=== PATIENT | male | born 1945 | race African-American/Black ===

== ENCOUNTER 2017-12-09 16:39 | Inpatient (IN) | payer MEDICARE, MEDICAID ==
[~2017-12-09] VITALS: Ht 172.7 cm; Wt 63.2 kg
[2017-12-09] MEDS ORDERED: SODIUM CHLORIDE 0.9% 1,000 ML IV ONE (17:03)
[2017-12-09 17:46] LABS: BASOPHILS % 0.7 % (0.0-2.0); HEMATOCRIT. 51.2 % (42.0-52.0); HEMOGLOBIN. 17.3 g/dL (14.0-18.0); LYMPHOCYTES % 60.2 % (20.0-50.0); MEAN CORPUSCULAR HEMOGLOBIN 31.6 pg (28.0-32.0); MEAN CORPUSCULAR VOLUME 93.8 fL (80.0-94.0); MEAN PLATELET VOLUME 8.8 fl (7.4-10.4); MONOCYTES % 9.1 % (2.0-8.0); PLATELET 171 x1000/uL (130-400); RED BLOOD CELL COUNT 5.46 mill/uL (4.7-6.1); RED CELL DISTRIBUTION WIDTH 14.6 % (11.6-14.6)
[2017-12-09 17:51] LABS: CHLORIDE 101 mEq/L (98-107)
[2017-12-09 17:54] LABS: PARTIAL THROMBOPLASTIN TIME 27.5 sec (23.4-31.0); PROTHROMBIN TIME 10.9 sec (9.4-11.6)
[2017-12-09 18:03] LABS: CREATINE KINASE MB FRACTION 4.9 ng/mL (0.5-3.6)
[2017-12-09] MEDS ORDERED: NALOXONE HCL 1 MG/ML 2ML VIAL IV NR (18:45)
[2017-12-09] MEDS ORDERED: HYDRALAZINE 20MG/ML VIAL IV NR (19:15)
[2017-12-09] MEDS ORDERED: MEROPENEM 1,000 MG in SODIUM CHLORIDE 0.9% 100 ML IV NR (19:15)
[2017-12-09 19:25] LABS: ETHANOL BLOOD < 10 mg/dL
[2017-12-09 19:47] LABS: PROTEIN URINE TRACE (NEGATIVE); SPECIFIC GRAVITY URINE 1.022 (1.005-1.030)
[2017-12-09 19:48] LABS: KETONES URINE NEGATIVE (NEGATIVE); LEUKOCYTE ESTERASE URINE NEGATIVE (NEGATIVE); NITRITE URINE NEGATIVE (NEGATIVE); OCCULT BLOOD URINE NEGATIVE (NEGATIVE)
[2017-12-09 19:49] LABS: CLARITY URINE CLEAR (CLEAR); COLOR URINE YELLOW (YELLOW)
[2017-12-09 20:42] LABS: *AMPHETAMINES SCREEN URINE NEGATIVE (NEGATIVE)
[2017-12-09 20:43] LABS: *BARBITURATES SCREEN URINE NEGATIVE (NEGATIVE); *BENZODIAZEPINES SCREEN URINE NEGATIVE (NEGATIVE); *COCAINE SCREEN URINE PRESUMTIVE POSITIVE (NEGATIVE); CANNABINOID URINE SCREEN NEGATIVE (NEGATIVE); METHADONE URINE SCREEN NEGATIVE (NEGATIVE); OPIATES URINE SCREEN PRESUMTIVE POSITIVE (NEGATIVE); PHENCYCLIDINE URINE SCREEN NEGATIVE (NEGATIVE)
[2017-12-09] MEDS ORDERED: AZITHROMYCIN 500 MG in DEXT 5% WATER 250 ML IV NR (21:00)
[2017-12-10] VITALS (12 sets, daily range): BP systolic 92–188; BP diastolic 55–102
[2017-12-10] MEDS ORDERED: ACETAMINOPHEN 325MG TABLET PO PRN (04:00)
[2017-12-10] MEDS ORDERED: DEXTROSE 50% WATER 50ML SYRINGE IV PRN (04:00)
[2017-12-10] MEDS: LEVOFLOXACIN 500MG PREMIX 100 ML IV SCH (04:45)
[2017-12-10] MEDS ORDERED: SODIUM CHL 0.45% + KCL 20MEQ/L 1,000 ML IV SCH (06:00)
[2017-12-10] MEDS: BLOOD SUGAR DIAGNOSTIC STRIP TEST SCH ×4 (06:19→21:35)
[2017-12-10 06:21] LABS: HEMOGLOBIN 16.2 g/dL (14.0-18.0); MEAN CORPUSCULAR HEMOGLOBIN 31.4 pg (28.0-32.0); MEAN CORPUSCULAR VOLUME 92.9 fL (80.0-94.0); RED BLOOD CELL COUNT 5.16 mill/uL (4.7-6.1); RED CELL DISTRIBUTION WIDTH 14.6 % (11.6-14.6)
[2017-12-10 06:50] LABS: CHLORIDE 102 mEq/L (98-107)
[2017-12-10 07:02] LABS: LDL CHOLESTEROL 89 mg/dL (5-100)
[2017-12-10 07:04] LABS: HDL CHOLESTEROL 52 mg/dL (40-59)
[2017-12-10] MEDS ORDERED: IPRATROPIUM/ALBUTEROL 0.5-3(2.5)MG/3ML NEB HHN PRN (07:45)
[2017-12-10] MEDS: AMLODIPINE 10MG TABLET PO SCH ×2 (08:00→09:00)
[2017-12-10] MEDS: ENOXAPARIN 40MG/0.4ML SYR SUBCUT SCH (08:01)
[2017-12-10] MEDS: INSULIN LISPRO 100 UNITS/ML SUBCUT SCH ×4 (08:02→21:35)
[2017-12-10] MEDS ORDERED: LEVOFLOXACIN 500MG PREMIX 100 ML IV SCH (09:00)
[2017-12-10 09:24] LABS: PLATELET 123 x1000/uL (130-400)
[2017-12-10] MEDS ORDERED: FUROSEMIDE 40MG/4ML VIAL IVP NR (10:00)
[2017-12-10] MEDS: NICOTINE 14MG PATCH TD SCH (10:20)
[2017-12-10] MEDS: INSULIN GLARGINE UD 100 UNITS/ML SYR SUBCUT SCH (10:22)
[2017-12-10] MEDS ORDERED: LOSA50TA3 PO (11:02)
[2017-12-10] MEDS ORDERED: OXYB5SYR2 PO (11:02)
[2017-12-10] MEDS ORDERED: MIRT15TA6 MT (11:02)
[2017-12-10] MEDS ORDERED: LOSARTAN POTASSIUM 50 MG TABLET PO SCH (12:00)
[2017-12-10] MEDS: CLONIDINE 0.1MG TABLET PO PRN ×2 (12:11→17:40)
[2017-12-10] MEDS: IPRATROPIUM/ALBUTEROL 0.5-3(2.5)MG/3ML NEB HHN SCH ×2 (14:12→20:32)
[2017-12-10 19:50] LABS: HEPATITIS B SURFACE ANTIGEN NEGATIVE
[2017-12-10 20:17] LABS: HEPATITIS B CORE AB IGM NEGATIVE
[2017-12-10 20:18] LABS: HEPATITIS A AB IGM NEGATIVE (NEGATIVE)
[2017-12-10] MEDS: BUDESONIDE 0.5MG/2ML NEB HHN SCH (20:33)
[2017-12-10] MEDS: HYDRALAZINE HCL 50MG TABLET PO SCH (21:29)
[2017-12-11] VITALS (16 sets, daily range): BP systolic 89–141; BP diastolic 56–82
[2017-12-11] MEDS: IPRATROPIUM/ALBUTEROL 0.5-3(2.5)MG/3ML NEB HHN SCH ×3 (00:45→21:52)
[2017-12-11] MEDS: LEVOFLOXACIN 500MG PREMIX 100 ML IV SCH (05:08)
[2017-12-11] MEDS: HYDRALAZINE HCL 50MG TABLET PO SCH ×3 (05:55→21:18)
[2017-12-11] MEDS: BLOOD SUGAR DIAGNOSTIC STRIP TEST SCH ×5 (05:55→20:20)
[2017-12-11] MEDS: CLONIDINE 0.1MG TABLET PO PRN (07:43)
[2017-12-11] MEDS: INSULIN LISPRO 100 UNITS/ML SUBCUT SCH ×5 (07:44→20:42)
[2017-12-11] MEDS: BUDESONIDE 0.5MG/2ML NEB HHN SCH ×2 (07:54→21:52)
[2017-12-11] MEDS: AMLODIPINE 10MG TABLET PO SCH (08:16)
[2017-12-11] MEDS: NICOTINE 14MG PATCH TD SCH (08:16)
[2017-12-11] MEDS: LOSARTAN POTASSIUM 100 MG TABLET PO SCH (08:19)
[2017-12-11] MEDS: ENOXAPARIN 40MG/0.4ML SYR SUBCUT SCH (09:00)
[2017-12-11] MEDS: INSULIN GLARGINE UD 100 UNITS/ML SYR SUBCUT SCH (10:04)
[2017-12-11 13:50] LABS: AMMONIA 29 uMol/L (<32)
[2017-12-12] VITALS: BP 107/64
[2017-12-12] MEDS: IPRATROPIUM/ALBUTEROL 0.5-3(2.5)MG/3ML NEB HHN SCH ×4 (02:43→20:30)
[2017-12-12 04:00] VITALS: BP 114/72
[2017-12-12] MEDS: LEVOFLOXACIN 500MG PREMIX 100 ML IV SCH (05:32)
[2017-12-12] MEDS: HYDRALAZINE HCL 50MG TABLET PO SCH ×3 (05:39→20:52)
[2017-12-12] MEDS: INSULIN LISPRO 100 UNITS/ML SUBCUT SCH ×4 (06:10→20:53)
[2017-12-12] MEDS: BLOOD SUGAR DIAGNOSTIC STRIP TEST SCH ×4 (06:10→20:22)
[2017-12-12 06:39] LABS: HEMATOCRIT 48.5 % (42.0-52.0); HEMOGLOBIN 16.1 g/dL (14.0-18.0); MEAN CORPUSCULAR HEMOGLOBIN 31.3 pg (28.0-32.0); PLATELET 175 x1000/uL (130-400); RED BLOOD CELL COUNT 5.16 mill/uL (4.7-6.1); RED CELL DISTRIBUTION WIDTH 14.4 % (11.6-14.6)
[2017-12-12 07:18] LABS: CHLORIDE 101 mEq/L (98-107)
[2017-12-12 08:00] VITALS: BP 155/85
[2017-12-12] MEDS: AMLODIPINE 10MG TABLET PO SCH (08:49)
[2017-12-12] MEDS: LOSARTAN POTASSIUM 100 MG TABLET PO SCH (08:49)
[2017-12-12] MEDS: NICOTINE 14MG PATCH TD SCH (08:49)
[2017-12-12] MEDS: ENOXAPARIN 40MG/0.4ML SYR SUBCUT SCH (08:50)
[2017-12-12] MEDS: BUDESONIDE 0.5MG/2ML NEB HHN SCH ×2 (08:59→20:30)
[2017-12-12] MEDS ORDERED: MECLIZINE 12.5MG TABLET PO PRN (09:15)
[2017-12-12] MEDS: INSULIN GLARGINE UD 100 UNITS/ML SYR SUBCUT SCH (10:03)
[2017-12-12 12:00] VITALS: BP_SYST 114; BP_SYST 133; BP_SYST 136; BP_DIAS 58; BP_DIAS 77; BP_DIAS 81
[2017-12-12 20:00] VITALS: BP 121/64
[2017-12-12 21:08] LABS: AMMONIA 43 uMol/L (<32)
[2017-12-12 23:53] VITALS: BP 144/48
[2017-12-13] MEDS: IPRATROPIUM/ALBUTEROL 0.5-3(2.5)MG/3ML NEB HHN SCH ×4 (01:58→20:16)
[2017-12-13 04:00] VITALS: BP 158/76
[2017-12-13] MEDS: LEVOFLOXACIN 500MG PREMIX 100 ML IV SCH (05:00)
[2017-12-13] MEDS: HYDRALAZINE HCL 50MG TABLET PO SCH ×3 (06:11→21:07)
[2017-12-13] MEDS: BLOOD SUGAR DIAGNOSTIC STRIP TEST SCH ×4 (06:13→20:28)
[2017-12-13] MEDS: INSULIN LISPRO 100 UNITS/ML SUBCUT SCH ×4 (06:13→20:28)
[2017-12-13 06:49] LABS: HEMATOCRIT. 47.1 % (42.0-52.0); HEMOGLOBIN. 15.6 g/dL (14.0-18.0); MEAN CORPUSCULAR HEMOGLOBIN 30.9 pg (28.0-32.0); MEAN CORPUSCULAR VOLUME 93.4 fL (80.0-94.0); PLATELET 190 x1000/uL (130-400); RED BLOOD CELL COUNT 5.05 mill/uL (4.7-6.1); RED CELL DISTRIBUTION WIDTH 14.7 % (11.6-14.6)
[2017-12-13 07:30] LABS: CHLORIDE 104 mEq/L (98-107)
[2017-12-13 07:39] LABS: PHOSPHORUS 2.4 mg/dL (2.5-4.9)
[2017-12-13 08:00] VITALS: BP 131/78
[2017-12-13] MEDS: NICOTINE 14MG PATCH TD SCH (08:53)
[2017-12-13] MEDS: ENOXAPARIN 40MG/0.4ML SYR SUBCUT SCH (08:53)
[2017-12-13] MEDS: LOSARTAN POTASSIUM 100 MG TABLET PO SCH (08:54)
[2017-12-13] MEDS: AMLODIPINE 10MG TABLET PO SCH (08:54)
[2017-12-13] MEDS: BUDESONIDE 0.5MG/2ML NEB HHN SCH (09:17)
[2017-12-13] MEDS: INSULIN GLARGINE UD 100 UNITS/ML SYR SUBCUT SCH (10:28)
[2017-12-13 12:00] VITALS: BP 135/72
[2017-12-13 12:00] LABS: PLATELET ESTIMATE NORMAL
[2017-12-13] MEDS ORDERED: LANTUSUD SUBCUT (13:22)
[2017-12-13] MEDS ORDERED: HYDR-4135 PO (13:22)
[2017-12-13] MEDS ORDERED: AMLO10TA80 PO (13:22)
[2017-12-13] MEDS ORDERED: LOSA100T3 PO (13:22)
[2017-12-13 16:00] VITALS: BP_SYST 126; BP_SYST 130; BP_SYST 132; BP_DIAS 70; BP_DIAS 72
[2017-12-13] MEDS ORDERED: LEVOFLOXACIN 500MG TABLET PO NR (20:00)
[2017-12-13 20:30] VITALS: BP_SYST 137; BP_SYST 145; BP_SYST 148; BP_DIAS 65; BP_DIAS 69; BP_DIAS 70
[2017-12-14] VITALS (7 sets, daily range): BP systolic 80–164; BP diastolic 46–96
[2017-12-14] MEDS: IPRATROPIUM/ALBUTEROL 0.5-3(2.5)MG/3ML NEB HHN SCH ×4 (02:21→20:51)
[2017-12-14] MEDS: HYDRALAZINE HCL 50MG TABLET PO SCH ×3 (06:00→22:00)
[2017-12-14] MEDS: BLOOD SUGAR DIAGNOSTIC STRIP TEST SCH ×4 (06:11→20:47)
[2017-12-14] MEDS: INSULIN LISPRO 100 UNITS/ML SUBCUT SCH ×4 (06:11→20:55)
[2017-12-14] MEDS: ENOXAPARIN 40MG/0.4ML SYR SUBCUT SCH (09:04)
[2017-12-14] MEDS: NICOTINE 14MG PATCH TD SCH (09:04)
[2017-12-14] MEDS: AMLODIPINE 10MG TABLET PO SCH (09:05)
[2017-12-14] MEDS: LOSARTAN POTASSIUM 100 MG TABLET PO SCH (09:05)
[2017-12-14] MEDS: INSULIN GLARGINE UD 100 UNITS/ML SYR SUBCUT SCH (11:12)
[2017-12-14] MEDS: LEVOFLOXACIN 500MG TABLET PO SCH (21:11)
[2017-12-14] MEDS ORDERED: ZOLPIDEM TARTRATE 5MG TABLET PO PRN (22:30)
[2017-12-15] VITALS: BP 98/56
[2017-12-15] MEDS: IPRATROPIUM/ALBUTEROL 0.5-3(2.5)MG/3ML NEB HHN SCH ×4 (01:15→20:33)
[2017-12-15 04:00] VITALS: BP 99/51
[2017-12-15] MEDS: HYDRALAZINE HCL 50MG TABLET PO SCH ×3 (05:34→20:54)
[2017-12-15] MEDS: BLOOD SUGAR DIAGNOSTIC STRIP TEST SCH ×4 (05:34→20:15)
[2017-12-15] MEDS: INSULIN LISPRO 100 UNITS/ML SUBCUT SCH ×4 (06:05→20:16)
[2017-12-15 08:00] VITALS: BP_SYST 127; BP_SYST 141; BP_DIAS 64; BP_DIAS 85
[2017-12-15] MEDS: LOSARTAN POTASSIUM 100 MG TABLET PO SCH (09:00)
[2017-12-15] MEDS: AMLODIPINE 10MG TABLET PO SCH (09:00)
[2017-12-15] MEDS: ENOXAPARIN 40MG/0.4ML SYR SUBCUT SCH (09:32)
[2017-12-15] MEDS: NICOTINE 14MG PATCH TD SCH (09:33)
[2017-12-15] MEDS: INSULIN GLARGINE UD 100 UNITS/ML SYR SUBCUT SCH (09:35)
[2017-12-15 12:00] VITALS: BP_SYST 110; BP_SYST 125; BP_DIAS 65; BP_DIAS 74
[2017-12-15 16:00] VITALS: BP 108/60
[2017-12-15] MEDS: LEVOFLOXACIN 500MG TABLET PO SCH (20:52)
[2017-12-16] VITALS: BP 138/73
[2017-12-16] MEDS: IPRATROPIUM/ALBUTEROL 0.5-3(2.5)MG/3ML NEB HHN SCH ×3 (01:50→14:02)
[2017-12-16 04:00] VITALS: BP 130/78
[2017-12-16] MEDS: HYDRALAZINE HCL 50MG TABLET PO SCH ×2 (05:29→14:38)
[2017-12-16] MEDS: BLOOD SUGAR DIAGNOSTIC STRIP TEST SCH ×3 (05:29→17:32)
[2017-12-16] MEDS: INSULIN LISPRO 100 UNITS/ML SUBCUT SCH ×4 (05:38→17:31)
[2017-12-16 08:00] VITALS: BP_SYST 125; BP_SYST 128; BP_SYST 129; BP_DIAS 69; BP_DIAS 72; BP_DIAS 74
[2017-12-16] MEDS: NICOTINE 14MG PATCH TD SCH (09:39)
[2017-12-16] MEDS: LOSARTAN POTASSIUM 100 MG TABLET PO SCH (09:39)
[2017-12-16] MEDS: AMLODIPINE 10MG TABLET PO SCH (09:39)
[2017-12-16] MEDS: ENOXAPARIN 40MG/0.4ML SYR SUBCUT SCH (09:46)
[2017-12-16] MEDS: INSULIN GLARGINE UD 100 UNITS/ML SYR SUBCUT SCH (10:04)
[2017-12-16 16:25] VITALS: BP 120/76
== END 2017-12-16 17:45 | DRG 917 ==
LOC: ER 16:52 → 3WST 21:00 → EDBEDREQ 21:02 → EDBEDREQTM 21:02 → ENRESERV 23:22 → 8WST 12-11 16:56
PROVIDERS: ADMIT Internal Medicine; ATTEND Internal Medicine
DX: T40.5X1A Poisoning by cocaine, accidental (unintentional), initial encounter (principal); I50.43 Acute on chronic combined systolic (congestive) and diastolic (congestive) heart failure; J96.00 Acute respiratory failure, unspecified whether with hypoxia or hypercapnia; G93.40 Encephalopathy, unspecified; J68.0 Bronchitis and pneumonitis due to chemicals, gases, fumes and vapors; J44.0 Chronic obstructive pulmonary disease with (acute) lower respiratory infection; G90.8 Other disorders of autonomic nervous system; I11.0 Hypertensive heart disease with heart failure; F11.10 Opioid abuse, uncomplicated; E83.52 Hypercalcemia; F17.210 Nicotine dependence, cigarettes, uncomplicated; E11.65 Type 2 diabetes mellitus with hyperglycemia; I25.10 Atherosclerotic heart disease of native coronary artery without angina pectoris; R74.0 Nonspecific elevation of levels of transaminase and lactic acid dehydrogenase [LDH]; Z86.73 Personal history of transient ischemic attack (TIA), and cerebral infarction without residual deficits; Z71.6 Tobacco abuse counseling; Y92.89 Other specified places as the place of occurrence of the external cause
CPT/HCPCS: 36415; 70450; 71045; 80048; 80053; 80061; 80305; 81003; 82140; 82553; 82962; 83036; 83605; 83690; 83735; 83880; 84100; 84484; 85025; 85027; 85049; 85610; 85730; 86705; 86709; 86803; 87040; 87086; 87340; 93005; 93306; 93880; 96361; 96365; 96367; 96375; 97162; 99291; G0482; J0360; J0456; J1650; J1815; J1940; J1956; J2185; J2310; J3480; J7030; J7040; J7050; J7060; J7620; J7626